=== PATIENT | male | born 1980 | race Hispanic/Latino ===

== ENCOUNTER 2017-01-10 17:25 | Emergency (ER) | payer OTHER ==
[~2017-01-10] VITALS: Ht 175.3 cm; Wt 86.4 kg
[2017-01-10 17:28] VITALS: BP 151/101; PULSE 76; RESP 14; O2SAT 99
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
[2017-01-10] MEDS ORDERED: HYDROcodone-APAP 5-325 mg Tablet PO ONE (18:00)
[2017-01-10] MEDS ORDERED: Ketorolac 30 mg/mL 2 mL Inj IM ONE (18:00)
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
[2017-01-10 19:44] VITALS: BP 138/87; PULSE 60; RESP 16; O2SAT 98
== END 2017-01-10 19:50 | disposition home or self-care (01) ==
LOC: SED 17:25 → EDBD 17:25 → SED 19:50
DX: S16.1XXA Strain of muscle, fascia and tendon at neck level, initial encounter (principal); S46.911A Strain of unspecified muscle, fascia and tendon at shoulder and upper arm level, right arm, initial encounter; S39.012A Strain of muscle, fascia and tendon of lower back, initial encounter; V43.52XA Car driver injured in collision with other type car in traffic accident, initial encounter; Y92.410 Unspecified street and highway as the place of occurrence of the external cause; Y93.89 Activity, other specified; Y99.8 Other external cause status
CPT/HCPCS: 71020; 72072; 72100; 72125; 73030; 96372; 99285; J1885